=== PATIENT | male | born 1995 ===

== ENCOUNTER 2017-02-02 10:18 | Emergency (ER) | payer MEDICAID, OTHER ==
[2017-02-02 10:18] VITALS: BMI 21.6
[2017-02-02 10:24] VITALS: BP 123/73; PULSE 73; RESP 18; TEMP 98.4; O2SAT 99
--- NOTE | 2017-02-02 10:57 | C.PDOC ---
History Of Present Illness 21-year-old male, presents to the emergency department with complaints of a wart to his finger for the past several months. Patient states he has not tried anything over the counter. Denies trauma, discharge, pain or fever. Time Seen by Provider: 02/02/17 10:31 Chief Complaint (Nursing): Abnormal Skin Integrity History Per: Patient History/Exam Limitations: no limitations Onset/Duration Of Symptoms: Days Current Symptoms Are (Timing): Still Present Past Medical History Reviewed: Historical Data, Nursing Documentation, Vital Signs Vital Signs: Last Vital Signs Temp 98.4 F 02/02/17 10:21 Pulse 73 02/02/17 10:21 Resp 18 02/02/17 10:21 BP 123/73 02/02/17 10:21 Pulse Ox 99 02/02/17 12:24 - Medical History PMH: Asthma Family History: States: No Known Family Hx - Social History Hx Tobacco Use: No Hx Alcohol Use: No Hx Substance Use: No - Immunization History Hx Tetanus Toxoid Vaccination: No Hx Influenza Vaccination: No Hx Pneumococcal Vaccination: No Review Of Systems Constitutional: Negative for: Fever Respiratory: Negative for: Shortness of Breath Gastrointestinal: Negative for: Vomiting Musculoskeletal: Negative for: Hand Pain Neurological: Negative for: Weakness, Numbness Physical Exam - Physical Exam Appears: Non-toxic, No Acute Distress Skin: Warm, Dry, No Rash Head: Atraumatic, Normacephalic Eye(s): bilateral: Normal Inspection, EOMI Nose: Normal Oral Mucosa: Moist Neck: Normal ROM Chest: Symmetrical Respiratory: No Accessory Muscle Use Extremity: Normal ROM, No Tenderness, Capillary Refill (<2 seconds), No Deformity, No Swelling, Other ((+) <0.5cm skin colored dome shaped area to the right second and third mid-phalanx of palmar aspect. central capillaries noted) Pulses: Left Radial: Normal, Right Radial: Normal Neurological/Psych: Oriented x3, Normal Speech ED Course And Treatment O2 Sat by Pulse Oximetry: 99 Progress Note: Patient notes he came to ED today because he was going to go on vacation and "didnt want to deal with them" . No new symptoms. Ptwas instructed to use over the counter treatment for warts and involve retail sales consultant for evaluation. Asked to return for any new or worsening symptoms. Patient is agreeable with plan. All questions answered. Disposition - Disposition Disposition: HOME/ ROUTINE Disposition Time: 10:55 Condition: STABLE Additional Instructions: Use over the counter wart removal as instructed. Follow up with retail sales consultant in 1-2 days. Instructions: Common Wart (ED) - Clinical Impression Clinical Impression: Common wart - Scribe Statement The provider has reviewed the documentation as recorded by the Scribe (Monica Maravilla) All medical record entries made by the Scribe were at my direction and personally dictated by me. I have reviewed the chart and agree that the record accurately reflects my personal performance of the history, physical exam, medical decision making, and the department course for this patient. I have also personally directed, reviewed, and agree with the discharge instructions and disposition.
== END 2017-02-02 11:10 | disposition home or self-care (01) ==
LOC: C.ER 10:18
DX: B07.8 Other viral warts (principal)

== ENCOUNTER 2017-09-08 02:25 | Emergency (ER) | payer OTHER ==
[2017-09-08 02:26] VITALS: BMI 21.6
[2017-09-08 02:36] VITALS: O2SAT 99
[2017-09-08] MEDS ORDERED: Sodium Chloride 0.9% 1,000 ML IV ONE (02:42)
[2017-09-08 03:09] LABS: BASO % 0.3 % (0.0-2.0); EOS # 0.2 K/uL (0.0-0.7); EOS % 3.5 % (0.0-4.0); HEMOGLOBIN 14.7 g/dL (12.0-18.0); LYMPH # 3.3 K/uL (1.0-4.3); LYMPH % 49.7 % (20.0-40.0); MEAN CELL VOLUME 83.8 fL (80.0-94.0); MEAN CORPUSCULAR HGB CONC 33.5 g/dL (33.0-37.0); MEAN PLATELET VOLUME 7.9 fL (7.2-11.7); MONO # 0.6 K/uL (0.0-0.8); NEUT # 2.5 K/uL (1.8-7.0); NEUT % 37.5 % (50.0-75.0); NRBC % 0.1 % (0.0-2.0); RBC 5.24 Mil/uL (4.40-5.90); RED CELL DISTRIBUTION WIDTH 12.9 % (11.5-14.5); WHITE BLOOD COUNT 6.7 K/uL (4.8-10.8)
[2017-09-08 03:28] LABS: ALB/GLOB RATIO 1.3 (1.0-2.1); ALBUMIN 4.5 g/dL (3.5-5.0); CALCIUM 9.4 mg/dl (8.6-10.4); GFR AFRICAN-AMERICAN > 60; GFR NON-AFRICAN AMERICAN > 60; LIPASE 86 U/L (23-300)
[2017-09-08 03:29] LABS: ALT/SGPT 26 U/L (21-72); AST/SGOT 39 U/L (17-59); BLOOD UREA NITROGEN 15 mg/dL (9-20)
[2017-09-08 04:10] LABS: INR 1.2; PROTHROMBIN TIME 12.9 SECONDS (9.7-12.2)
[2017-09-08] MEDS ORDERED: Iodixanol 320 MG/ML 100 ML BOTTLE IV ONE (04:27)
--- NOTE | 2017-09-08 05:12 | CT ---
EXAM: CT Angiography Chest With Intravenous Contrast CLINICAL HISTORY: 22 years old, male; Pain; Chest pain; Additional info: Chest pain. R/O pe. TECHNIQUE: Axial computed tomographic angiography images of the chest with intravenous contrast using pulmonary embolism protocol. All CT scans at this facility use one or more dose reduction techniques, viz.: automated exposure control; ma/kV adjustment per patient size (including targeted exams where dose is matched to indication; i.e. head); or iterative reconstruction technique. 835 images are submitted. MIP reconstructed images were created and reviewed. Coronal and sagittal reformatted images were created and reviewed. CONTRAST: 100 mL of [id number] administered intravenously. COMPARISON: No relevant prior studies available. FINDINGS: Pulmonary arteries: No CT evidence for pulmonary embolus. Mild heterogeneous enhancement of the pulmonary arteries. Aorta: No acute findings. No thoracic aortic aneurysm. Lungs: Minimal mucus versus secretion versus aspirate in the right mainstem bronchus seen on image 45 series 4. No mass. Pleural space: Unremarkable. No significant effusion. No pneumothorax. Heart: Unremarkable. No cardiomegaly. No significant pericardial effusion. Mediastinum: Thymus gland is seen. Bones/joints: No acute fracture. No dislocation. Soft tissues: Unremarkable. Lymph nodes: Right hilar and small left hilar lymph nodes. Normal adrenal glands. IMPRESSION: 1. No CT evidence for pulmonary embolus. Mild heterogeneous enhancement of the pulmonary arteries. 2. Minimal mucus versus secretion versus aspirate in the right mainstem bronchus seen on image 45 series 4. 3. No active disease.
--- NOTE | 2017-09-08 05:23 | C.PDOC ---
Time Seen by Provider: 09/08/17 02:39 Chief Complaint (Nursing): Chest Pain History Per: Patient Onset/Duration Of Symptoms: Hrs Current Symptoms Are (Timing): Still Present Severity: Moderate Quality: "Pain" Modifying Factors: Other Indicated Below Alleviating Factors: None Additional History Per: Prior Records Past Medical History Reviewed: Historical Data, Nursing Documentation, Vital Signs Vital Signs: Last Vital Signs Temp 98.2 F 09/08/17 02:27 Pulse 81 09/08/17 02:27 Resp 20 09/08/17 02:27 BP 68/38 L 09/08/17 02:27 Pulse Ox 99 09/08/17 02:27 - Medical History PMH: Asthma Family History: States: Unknown Family Hx - Social History Hx Tobacco Use: No Hx Alcohol Use: No Hx Substance Use: Yes - Immunization History Hx Tetanus Toxoid Vaccination: No Hx Influenza Vaccination: No Hx Pneumococcal Vaccination: No Review Of Systems Except As Marked, All Systems Reviewed And Found Negative. Constitutional: Negative for: Fever, Weakness Cardiovascular: Positive for: Chest Pain Respiratory: Positive for: Cough (for about 1 month), Sputum. Negative for: Shortness of Breath, Hemoptysis Gastrointestinal: Negative for: Vomiting, Abdominal Pain Musculoskeletal: Negative for: Neck Pain, Back Pain, Leg Pain Skin: Negative for: Rash Neurological: Negative for: Weakness, Numbness, Dizziness Physical Exam - Physical Exam Appears: Non-toxic, No Acute Distress Skin: Normal Color, Warm, Dry, No Rash Head: Atraumatic, Normacephalic Eye(s): bilateral: Normal Inspection, PERRL, EOMI Neck: Normal ROM, Supple Chest: Symmetrical, No Deformity, No Tenderness, No Ecchymosis, No Subcutaneous Emphysema Cardiovascular: Rhythm Regular Respiratory: Normal Breath Sounds, No Accessory Muscle Use Gastrointestinal/Abdominal: Soft, No Tenderness Back: No CVA Tenderness Extremity: Normal ROM, No Pedal Edema, No Calf Tenderness Neurological/Psych: Oriented x3, Normal Motor, Normal Sensation ED Course And Treatment - Laboratory Results Result Diagrams: 09/08/17 03:05 09/08/17 03:05 Lab Interpretation: No Acute Changes ECG: Interpreted By Me, Viewed By Me ECG Rhythm: Sinus Rhythm, Nonspecific Changes ECG Interpretation: No Acute Changes Rate From EC O2 Sat by Pulse Oximetry: 99 Pulse Ox Interpretation: Normal - Radiology CXR: Interpreted by Me, Viewed By Me CXR Interpretation: Yes: No Acute Disease - CT Scan/US CTA of chest Other Rad Studies (CT/US): Read By Radiologist, Radiology Report Reviewed CT/US Interpretation: IMPRESSION: 1. No CT evidence for pulmonary embolus. Mild heterogeneous enhancement of. the pulmonary arteries. 2. Minimal mucus versus secretion versus aspirate in the right mainstem. bronchus seen on image 45 series 4. 3. No active disease. Progress Note: Pt feels much better and wants to go home. Reassessment Condition: Improved Progress - Interventions Interventions:: Observation, Intravenous fluid - Data Reviewed Data Reviewed: Lab, Diagnostic imaging, EKG, Old records - Patient Status Patient status: Mostly improved - Continuity of Care Discussed patient case with:: Patient, ED Nurse - Patient Plan Patient Plan: Discharge, F/U with PCP, Continue present meds Disposition Counseled Patient/Family Regarding: Studies Performed, Diagnosis, Need For Followup, Rx Given - Disposition Disposition: HOME/ ROUTINE Disposition Time: 05:24 Condition: IMPROVED Additional Instructions: Follow up with your doctor within 1-2 days. Return to the ER if you pass out, develop shortness of breath, dizziness, worsening of symptoms or if you have any other concerns. Prescriptions: Azithromycin [Zithromax] 1 dose PO DAILY #1 pkt Instructions: Chest Pain (DC) - Clinical Impression Clinical Impression: Chest pain, Bronchitis
[2017-09-08 05:35] VITALS: RESP 18
[2017-09-08 05:36] VITALS: BP 119/72; PULSE 76; TEMP 97.7
[2017-09-08 05:56] LABS: SQUAMOUS EPITHIAL < 1 /hpf (0-5); URINE BILIRUBIN NEGATIVE (NEGATIVE); URINE BLOOD NEGATIVE (NEGATIVE); URINE CLARITY Clear (Clear); URINE COLOR Straw (YELLOW); URINE GLUCOSE (UA) NORMAL (Normal); URINE LEUKOCYTE ESTERASE NEG Leu/uL (Negative); URINE NITRATE NEGATIVE (NEGATIVE); URINE PROTEIN NEGATIVE (NEGATIVE); URINE UROBILINOGEN NORMAL mg/dL (0.2-1.0)
[2017-09-08 06:10] LABS: BARBITURATES, UR NEGATIVE (NEGATIVE); BENZODIAZEPINES, UR NEGATIVE (NEGATIVE); OPIATES, UR NEGATIVE (NEGATIVE); PHENCYCLIDINE, UR NEGATIVE (NEGATIVE)
--- NOTE | 2017-09-08 08:59 | RAD ---
PROCEDURE: CHEST RADIOGRAPH, 1 VIEW HISTORY: Chest pain COMPARISON: 07/17/2016 FINDINGS: LUNGS: Clear. PLEURA: No pneumothorax or pleural fluid seen. CARDIOVASCULAR: Normal. OSSEOUS STRUCTURES: No significant abnormalities. VISUALIZED UPPER ABDOMEN: Normal. OTHER FINDINGS: None. IMPRESSION: No active disease.
--- NOTE | 2017-09-09 12:24 | CARD ---
APPROVED REPORT EKG Measurement Heart [id number] <Conclusion> Normal sinus rhythm Minimal voltage criteria for LVH, may be normal variant Borderline ECG
== END 2017-09-08 05:37 | disposition home or self-care (01) ==
LOC: C.ER 02:25
DX: J40 Bronchitis, not specified as acute or chronic (principal); R07.9 Chest pain, unspecified
CPT/HCPCS: 71045; 71275; 80053; 80324; 80345; 80346; 80349; 80353; 80358; 80361; 81001; 83690; 83992; 84484; 85025; 85378; 85610; 85730; 93005; 96360; 99285; J7040; Q9967

== ENCOUNTER 2018-01-03 10:24 | Emergency (ER) | payer OTHER ==
[2018-01-03 10:28] VITALS: BMI 21.4
[2018-01-03 10:30] VITALS: BP 116/74; PULSE 102; RESP 18; TEMP 99.2; O2SAT 99
--- NOTE | 2018-01-03 10:43 | C.PDOC ---
History Of Present Illness Patient is a 22 y/o male presenting to the ER complaining of sore throat. Patient states he woke up with sore throat and general myalgias this morning. He denies any fever, nausea, or vomiting. He denies any sick contacts at home. Time Seen by Provider: 01/03/18 10:32 Chief Complaint (Nursing): ENT Problem History Per: Patient History/Exam Limitations: no limitations Onset/Duration Of Symptoms: Hrs Current Symptoms Are (Timing): Still Present Location Of Pain: Throat, Diffuse Myalgias Sick Contacts (Context): None Associated Symptoms: Sore Throat. denies: Fever, Nausea, Vomiting Past Medical History Reviewed: Historical Data, Nursing Documentation, Vital Signs Vital Signs: Last Vital Signs Temp 99.2 F 01/03/18 10:28 Pulse 102 H 01/03/18 10:28 Resp 18 01/03/18 11:15 BP 116/74 01/03/18 10:28 Pulse Ox 99 01/03/18 10:46 - Medical History PMH: Asthma Surgical History: No Surg Hx Family History: States: No Known Family Hx - Social History Hx Tobacco Use: No Hx Alcohol Use: No Hx Substance Use: Yes - Immunization History Hx Tetanus Toxoid Vaccination: No Hx Influenza Vaccination: No Hx Pneumococcal Vaccination: No Review Of Systems Except As Marked, All Systems Reviewed And Found Negative. Constitutional: Negative for: Fever ENT: Positive for: Throat Pain Gastrointestinal: Negative for: Nausea, Vomiting Physical Exam - Physical Exam Appears: Non-toxic, No Acute Distress Skin: Normal Color, Warm, Dry Head: Atraumatic, Normacephalic Eye(s): bilateral: Normal Inspection Oral Mucosa: Moist Tongue: Normal Appearing Lips: Normal Appearing Throat: Erythema (Mild erythema ), No Exudate Neck: Supple Chest: Symmetrical Cardiovascular: Rhythm Regular Respiratory: Normal Breath Sounds, No Rales, No Rhonchi, No Wheezing Gastrointestinal/Abdominal: Soft, No Tenderness, No Distention, No Guarding Neurological/Psych: Oriented x3 Gait: Steady ED Course And Treatment O2 Sat by Pulse Oximetry: 99 (RA) Pulse Ox Interpretation: Normal Medical Decision Making Medical Decision Making: Patient given 800mg motrin PO. Advised supportive care at home. Disposition - Disposition Disposition: HOME/ ROUTINE Disposition Time: 11:15 Condition: GOOD Additional Instructions: MICHAEL BUTCHER, thank you for letting us take care of you today. Your provider was Nimisha Reyes MD and you were treated for SORE THROAT. The emergency medical care you received today was directed at your acute symptoms. If you were prescribed any medication, please fill it and take as directed. It may take several days for your symptoms to resolve. Return to the Emergency Department if your symptoms worsen, do not improve, or if you have any other problems. Please contact your doctor or call one of the physicians/clinics you have been referred to that are listed on the Patient Visit Information form that is included in your discharge packet. Bring any paperwork you were given at discharge with you along with any medications you are taking to your follow up visit. Our treatment cannot replace ongoing medical care by a primary care provider outside of the emergency department. Thank you for allowing the [facility] team to be part of your care today. If you had an X-Ray or CT scan: A Radiologist will review the ED reading if any change in treatment is needed we will contact you. If you had a blood, urine, or wound culture: It will take several days for the results, if any change in treatment is needed we will contact you. If you had an STI test: It will take 48 hours for the results. Please call after 1 week if you have not heard back. Instructions: Sore Throat, Adult (DC) Forms: [employer] (Maldivian) - Clinical Impression Clinical Impression: Viral syndrome - Scribe Statement The provider has reviewed the documentation as recorded by the Scribe Suma Olivares
== END 2018-01-03 11:16 | disposition home or self-care (01) ==
LOC: C.ER 10:24
DX: B34.9 Viral infection, unspecified (principal)

== ENCOUNTER 2018-01-04 09:41 | Emergency (ER) | payer OTHER ==
[2018-01-04 09:41] VITALS: BMI 21.4
[2018-01-04 09:48] VITALS: BP 111/74; PULSE 102; RESP 20; TEMP 99.1; O2SAT 99
--- NOTE | 2018-01-04 10:02 | C.PDOC ---
History Of Present Illness 22 year old male presents to the emergency department with complaints of persistent sore throat for the last two days. Patient reports that he was seen yesterday 01/03 for the same symptoms, but returns stating "they only gave me one pill and the pain came back this morning." Patient states that he did not read the discharge instructions that were given to him at the time. He denies fever, or any new symptoms since his prior evaluation. Patient is requesting a work note. CO PERSIST SORE THROAT X 2 DAYS. SEEN 01/03 FOR SAME, "THEY ONLY GAVE ME ONE PILL AND PAIN CAME BACK THIS MORNING". PS DID NOT READ DC INSTRUCTIONS. NO FEVER , NEW SX SINCE PRIOR EVAL. REQUESTING WORK NOTE EXAM NONTOXIC HEENT +PHARNGITIS W MILD SWELL SCANT EXUDATE, UVULA MIDLINE NO STRIDOR, DROOL. REMAINDER NEG MDM PT ADVISED PAIN MEDS ARE OTC, TO READ DC INSTRUCTIONS. FU PMD Time Seen by Provider: 01/04/18 09:55 Chief Complaint (Nursing): ENT Problem History Per: Patient History/Exam Limitations: no limitations Onset/Duration Of Symptoms: Days (2) Current Symptoms Are (Timing): Still Present Location Of Pain: Throat Associated Symptoms: Sore Throat. denies: Fever Past Medical History Reviewed: Historical Data, Nursing Documentation, Vital Signs Vital Signs: Last Vital Signs Temp 99.1 F 01/04/18 09:43 Pulse 102 H 01/04/18 09:43 Resp 20 01/04/18 09:43 BP 111/74 01/04/18 09:43 Pulse Ox 99 01/04/18 10:02 - Medical History PMH: Asthma Surgical History: No Surg Hx Family History: States: Unknown Family Hx - Social History Hx Tobacco Use: No Hx Alcohol Use: No Hx Substance Use: Yes - Immunization History Hx Tetanus Toxoid Vaccination: No Hx Influenza Vaccination: No Hx Pneumococcal Vaccination: No Review Of Systems Except As Marked, All Systems Reviewed And Found Negative. Constitutional: Negative for: Fever ENT: Positive for: Throat Pain Physical Exam - Physical Exam Appears: Non-toxic, No Acute Distress Skin: Warm, Dry Head: Atraumatic, Normacephalic Eye(s): bilateral: Normal Inspection Nose: Normal Oral Mucosa: Moist Throat: Exudate (scant), No Drooling, Other (pharyngitis, mild swelling, uvula midline) Chest: Symmetrical Cardiovascular: Rhythm Regular Respiratory: Normal Breath Sounds, No Rales, No Rhonchi, No Stridor, No Wheezing Extremity: Normal ROM Neurological/Psych: Oriented x3, Normal Speech, Normal Cognition ED Course And Treatment O2 Sat by Pulse Oximetry: 99 (RA) Pulse Ox Interpretation: Normal Progress Note: Plan: Decadron 12mg PO. Motrin 800mg PO. Tylenol 975mg PO Medical Decision Making Medical Decision Making: Patient advised that his pain medications are obtainable [id number], and that he should read his discharge instructions for more information and follow up with his PMD. Disposition Counseled Patient/Family Regarding: Diagnosis, Need For Followup - Disposition Referrals: [facility] [Outside] [facility] [Outside] YOUR,PMD [Other] Disposition: HOME/ ROUTINE Disposition Time: 09:58 Condition: IMPROVED Additional Instructions: TAKE MOTRIN 3-4 PILLS EVERY 6-8 HOURS OR DIRECTED. TAKE TYLENOL DIRECTED. MEDICATIONS ARE AVAILABLE OVER THE COUNTER AND DO NOT REQUIRE A PRESCRIPTION. FOLLOW UP WITH YOUR PMD. Instructions: Sore Throat, Adult (DC) Forms: [employer] (Martiniquais), Work Excuse - Clinical Impression Clinical Impression: Noncompliance with medication regimen, Sore throat - Scribe Statement The provider has reviewed the documentation as recorded by the Scribe (Narendra Acevedo) Provider Attestation: All medical record entries made by the Scribe were at my direction and personally dictated by me. I have reviewed the chart and agree that the record accurately reflects my personal performance of the history, physical exam, medical decision making, and the department course for this patient. I have also personally directed, reviewed, and agree with the discharge instructions and disposition.
== END 2018-01-04 10:10 | disposition home or self-care (01) ==
LOC: C.ER 09:41
DX: J02.9 Acute pharyngitis, unspecified (principal); Z91.14 Patient's other noncompliance with medication regimen
CPT/HCPCS: 99283; J8540

== ENCOUNTER 2018-03-20 10:56 | Emergency (ER) | payer OTHER ==
[2018-03-20 10:56] VITALS: BMI 21.4
[2018-03-20 11:02] VITALS: TEMP 97.7; O2SAT 98
[2018-03-20] MEDS ORDERED: Naproxen 550 mg Tab PO STA (11:19)
--- NOTE | 2018-03-20 11:22 | C.PDOC ---
History Of Present Illness 22 year old male presents to the ER with a complaint of chronic neck pain that has worsened today. 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 Patient states the pain worsens when turning his head left and right. Denies weakness or numbness of the extremities. Chief Complaint (Nursing): Back Pain History Per: Patient History/Exam Limitations: no limitations Onset/Duration Of Symptoms: Days Current Symptoms Are (Timing): Still Present Quality Of Discomfort: Unable To Describe Previous Symptoms: Chronic Pain Associated Symptoms: None Exacerbating Factor(s): Nothing Recent travel outside of the [place]: No Past Medical History Reviewed: Historical Data, Nursing Documentation, Vital Signs Vital Signs: Last Vital Signs Temp 97.7 F 03/20/18 11:00 Pulse 67 03/20/18 12:20 Resp 18 03/20/18 12:20 BP 115/76 03/20/18 12:20 Pulse Ox 98 03/20/18 13:28 - Medical History PMH: Asthma Family History: States: Unknown Family Hx - Social History Hx Tobacco Use: No Hx Alcohol Use: No Hx Substance Use: Yes - Immunization History Hx Tetanus Toxoid Vaccination: Yes Hx Influenza Vaccination: Yes Hx Pneumococcal Vaccination: No Review Of Systems Constitutional: Negative for: Fever Eyes: Negative for: Pain ENT: Negative for: Ear Pain, Ear Discharge Cardiovascular: Negative for: Chest Pain Respiratory: Negative for: Cough, Shortness of Breath Gastrointestinal: Negative for: Nausea, Vomiting Musculoskeletal: Positive for: Neck Pain. Negative for: Shoulder Pain, Arm Pain Neurological: Negative for: Weakness, Numbness Physical Exam - Physical Exam Appears: Non-toxic, No Acute Distress Skin: Normal Color, Warm, Dry, No Rash Head: Atraumatic, Normacephalic Eye(s): bilateral: Normal Inspection Oral Mucosa: Moist Neck: No Midline Cervical Tenderness, Paracervical Tenderness (Right), Supple Chest: Symmetrical, No Tenderness Cardiovascular: Rhythm Regular Respiratory: Normal Breath Sounds, No Rales, No Rhonchi, No Wheezing Gastrointestinal/Abdominal: Soft, No Tenderness Back: No Vertebral Tenderness, No Paraspinal Tenderness Extremity: Normal ROM (x4) Neurological/Psych: Oriented x3, Normal Speech, Normal Motor, Normal Sensation Gait: Steady ED Course And Treatment O2 Sat by Pulse Oximetry: 98 (Room air) Pulse Ox Interpretation: Normal - Other Rad Cervical spine x-ray X-Ray: Viewed By Me, Read By Radiologist Interpretation: IMPRESSION: Normal limited examination Medical Decision Making Medical Decision Making: Naproxen administered with relief. Cervical spine x-ray ordered, results were negative. Patient is resting in the ER in no acute distress, vitals are stable, will discharge home with Rx and instructions to follow up at the clinic. Disposition - Disposition Referrals: [facility] [Outside] Disposition: HOME/ ROUTINE Disposition Time: 11:48 Condition: FAIR Additional Instructions: Follow up with the medical clinic within 1-2 days. Return if worsened. Prescriptions: diaZEpam [Valium] 5 mg PO TID #21 tab Naproxen [Naprosyn] 500 mg PO BID #20 tab Instructions: Cervical Muscle Strain (DC) Forms: [email or web address] (Malay), Work Excuse - Clinical Impression Clinical Impression: Cervical strain - PA / MASK INSPECTOR / Resident Statement MD/DO has reviewed & agrees with the documentation as recorded. - Scribe Statement The provider has reviewed the documentation as recorded by the Scribe Anand Mendoza All medical record entries made by the Wilmaibmax were at my direction and personally dictated by me. I have reviewed the chart and agree that the record accurately reflects my personal performance of the history, physical exam, medical decision making, and the department course for this patient. I have also personally directed, reviewed, and agree with the discharge instructions and disposition.
[2018-03-20] MEDS ORDERED: Naproxen 550 mg Tab PO ONE (11:32)
--- NOTE | 2018-03-20 11:39 | RAD ---
Date of service: 03/20/2018 PROCEDURE: Cervical Spine Radiographs. HISTORY: Pain. COMPARISON: None. FINDINGS: BONES: The vertebral bodies are maintained in height. Normal alignment is maintained. The atlantoaxial articulation is suboptimally evaluated. The odontoid process is grossly intact but suboptimally evaluated due to technical limitation of the open mouth view. DISC SPACES: Normal. SOFT TISSUES: Normal. No prevertebral soft tissue swelling. OTHER FINDINGS: None. IMPRESSION: Normal limited examination
[2018-03-20 12:36] VITALS: BP 115/76; PULSE 67; RESP 18
== END 2018-03-20 12:21 | disposition home or self-care (01) ==
LOC: C.ER 10:56
DX: S16.1XXA Strain of muscle, fascia and tendon at neck level, initial encounter (principal); X58.XXXA Exposure to other specified factors, initial encounter

== ENCOUNTER 2018-04-04 11:35 | Emergency (ER) | payer OTHER ==
[2018-04-04 11:35] VITALS: BMI 21.4
[2018-04-04 11:46] VITALS: BP 120/79; PULSE 60; RESP 18; TEMP 98.2; O2SAT 100
--- NOTE | 2018-04-04 13:24 | C.PDOC ---
History Of Present Illness 22 year old male presents to the ED complaining of intermittent pain to the right side of neck for the past 2 months that worsens with movement. Patient reports he was here before and was given medication that helped alleviate the pain, but woke up with the same pain. Patient also reports getting an x-ray during his last visit that was reported negative. 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 Contrary to triage, patient denies any new symptoms, dizziness, numbness, weakness, or tingling in extremities. Time Seen by Provider: 04/04/18 12:26 Chief Complaint (Nursing): Pain, Chronic History Per: Patient History/Exam Limitations: no limitations Onset/Duration Of Symptoms: Days Current Symptoms Are (Timing): Still Present Reports Recently: Seen In ED Past Medical History Reviewed: Historical Data, Nursing Documentation, Vital Signs Vital Signs: Last Vital Signs Temp 98.2 F 04/04/18 11:43 Pulse 60 04/04/18 11:43 Resp 18 04/04/18 11:43 BP 120/79 04/04/18 11:43 Pulse Ox 100 04/04/18 15:47 - Medical History PMH: Asthma Surgical History: No Surg Hx Family History: States: No Known Family Hx - Social History Hx Tobacco Use: No Hx Alcohol Use: No Hx Substance Use: Yes (marijauna) - Immunization History Hx Tetanus Toxoid Vaccination: Yes Hx Influenza Vaccination: No Hx Pneumococcal Vaccination: No Review Of Systems Except As Marked, All Systems Reviewed And Found Negative. Musculoskeletal: Positive for: Neck Pain (Intermittent right sided neck pain for past 2 months jayjay worsens with movement. ) Neurological: Negative for: Weakness, Numbness, Dizziness, Other (tingling to extremities) Physical Exam - Physical Exam Appears: Non-toxic, No Acute Distress Skin: Warm, Dry Head: Atraumatic, Normacephalic Eye(s): bilateral: Normal Inspection, PERRL, EOMI Ear(s): Bilateral: Normal Neck: No Midline Cervical Tenderness, Other (Tenderness to right lateral neck muscle. Pain with movement of head to ipsilateral side. ) Lymphatic: No Adenopathy Chest: Symmetrical, No Tenderness Cardiovascular: Rhythm Regular Respiratory: Normal Breath Sounds Gastrointestinal/Abdominal: Soft, No Tenderness Back: No Vertebral Tenderness, No Paraspinal Tenderness Extremity: Normal ROM, No Swelling Neurological/Psych: Oriented x3, Normal Speech, Normal Cognition, Normal Motor, Normal Sensation Gait: Steady ED Course And Treatment O2 Sat by Pulse Oximetry: 100 (RA) Pulse Ox Interpretation: Normal Progress Note: Lidoderm, motrin, valium ordered. On re-evaluation patient feels better, no neuro deficit, ambulating in ED. Patient is stable to be d/c home with PMD/clinic follow up. Disposition - Disposition Referrals: [facility] [Outside] Disposition: HOME/ ROUTINE Disposition Time: 13:29 Condition: STABLE Additional Instructions: Follow up in Clinic within 1-2 days. Return to ED if feel worse. Prescriptions: Lidocaine 4% [Lidocaine 4% 50 ml Topical (or)] 1 appl TOP QID #1 bottle Naproxen [Naprosyn] 1 tab PO BID PRN #25 tab PRN Reason: Pain diaZEpam [Valium] 2 mg PO TID #15 tab Instructions: Torticollis, Adult Forms: [facility] ([place] Islander), Work Excuse - Clinical Impression Clinical Impression: Neck muscle spasm - PA / IP NETWORK ARCHITECT / Resident Statement MD/DO has reviewed & agrees with the documentation as recorded. - Scribe Statement The provider has reviewed the documentation as recorded by the Scribe Farhad Ruby All medical record entries made by the Scribe were at my direction and personally dictated by me. I have reviewed the chart and agree that the record accurately reflects my personal performance of the history, physical exam, medical decision making, and the department course for this patient. I have also personally directed, reviewed, and agree with the discharge instructions and disposition.
[2018-04-04] MEDS ORDERED: Lidocaine 5% Patch TD STA (13:28)
[2018-04-04] MEDS ORDERED: Lidocaine 5% Patch TD ONE (13:37)
== END 2018-04-04 13:40 | disposition home or self-care (01) ==
LOC: C.ER 11:35
DX: M62.838 Other muscle spasm (principal)

== ENCOUNTER 2018-04-30 13:33 | Emergency (ER) | payer OTHER ==
[2018-04-30 13:33] VITALS: BMI 21.4
[2018-04-30 14:02] VITALS: BP 109/63; PULSE 64; RESP 16; TEMP 97.9; O2SAT 100
--- NOTE | 2018-04-30 15:12 | RAD ---
Date of service: 04/30/2018 PROCEDURE: Left middle finger radiographs. HISTORY: r/o fracture COMPARISON: None. TECHNIQUE: AP radiograph of the left hand, as well as spot oblique and lateral images of left middle finger were obtained. FINDINGS: LEFT MIDDLE FINGER: Left middle finger normal, without acute fracture of focal lesion. Remainder of the left hand (as seen on the AP view) is grossly unremarkable. JOINTS: Normal. SOFT TISSUES: Normal. OTHER FINDINGS: None. IMPRESSION: No acute fracture or dislocation.
--- NOTE | 2018-04-30 15:14 | RAD ---
Date of service: 04/30/2018 PROCEDURE: Left Wrist Radiographs. HISTORY: r/o fracture COMPARISON: None. FINDINGS: BONES: Bone alignment and mineralization are normal. There is no acute displaced fracture or bone destruction. JOINTS: Normal. No dislocation. SOFT TISSUES: Normal. OTHER FINDINGS: None. IMPRESSION: No acute fracture or dislocation.
--- NOTE | 2018-04-30 15:55 | C.PDOC ---
History Of Present Illness 22 y/o right handed male with PMH of asthma presents to ED for left hand pain s/p punching a wall this morning. After punching the wall, pt had immediate pain and swelling to left 3rd digit and left wrist. Unable to make a full fist with left hand. Has not taken anything for pain. Denies numbness, paresthesias, snuffbox tenderness, elbow pain, shoulder pain, back pain. Chief Complaint (Nursing): Upper Extremity Problem/Injury Past Medical History Reviewed: Historical Data, Nursing Documentation, Vital Signs Vital Signs: Last Vital Signs Temp 97.9 F 04/30/18 13:58 Pulse 64 04/30/18 13:58 Resp 16 04/30/18 13:58 BP 109/63 04/30/18 13:58 Pulse Ox 100 04/30/18 13:58 - Medical History PMH: Asthma Family History: States: Unknown Family Hx - Social History Hx Tobacco Use: No Hx Alcohol Use: No Hx Substance Use: Yes (marijauna) - Immunization History Hx Tetanus Toxoid Vaccination: Yes Hx Influenza Vaccination: No Hx Pneumococcal Vaccination: No Review Of Systems Except As Marked, All Systems Reviewed And Found Negative. Constitutional: Negative for: Fever, Chills Eyes: Negative for: Pain Cardiovascular: Negative for: Chest Pain, Palpitations Respiratory: Negative for: Cough, Shortness of Breath Gastrointestinal: Negative for: Nausea, Vomiting, Abdominal Pain Musculoskeletal: Positive for: Arm Pain (left wrist), Hand Pain (left). Negative for: Neck Pain, Shoulder Pain, Back Pain, Leg Pain, Foot Pain Skin: Positive for: Bruising (left 3rd digit). Negative for: Rash Neurological: Negative for: Weakness, Numbness, Headache, Dizziness Physical Exam - Physical Exam Appears: Well, No Acute Distress Skin: Warm, Dry, Ecchymosis (left 3rd digit over MCP) Head: Atraumatic, Normacephalic, No Tenderness Eye(s): bilateral: Normal Inspection, PERRL, EOMI Neck: Normal, Normal ROM, No Midline Cervical Tenderness, No Paracervical Tenderness Chest: Symmetrical Cardiovascular: Rhythm Regular Respiratory: Normal Breath Sounds Back: Normal Inspection, No Vertebral Tenderness, No Muscle Spasm, No Paraspinal Tenderness Extremity: No Normal ROM (decreased ROM of left 3rd finger secondary to pain; full ROM left wrist), Tenderness (left 3rd digit, volar wrist), Capillary Refill (<2 sec), No Deformity, Swelling (left 3rd digit) Extremity: Left: Bony Point Tenderness, Limited ROM To Joint (left 3rd finger), Right: Atraumatic (left 3rd digit bruised, swollen, decreased ROM), Normal Color And Temperature, Normal ROM Neurological/Psych: Oriented x3, Normal Speech, Normal Cognition, Normal Cranial Nerves, No Cerebellar Signs, Normal Motor, Normal Sensation ED Course And Treatment O2 Sat by Pulse Oximetry: 100 Medical Decision Making Medical Decision Making: Initial plan: --pain control --xray left hand Xrays negative Impression: Left 3rd digit contusion Plan: ibuprofen for pain NATALIE wrap Ice, elevate, compress injured area no strenuous activity Disposition - Disposition Disposition: HOME/ ROUTINE Disposition Time: 15:00 Condition: IMPROVED Additional Instructions: Take ibuprofen 600mg every 6 hours as needed for pain Keep area elevated, compressed, and rested Ice the injury Followup with hand if pain persists Return to ED if symptoms worsen Prescriptions: Ibuprofen [Motrin Tab] 600 mg PO Q6H PRN #20 tab PRN Reason: Pain, Mild (1-3) Forms: [facility] (Armenian), Work Excuse - Clinical Impression Clinical Impression: Finger injury
== END 2018-04-30 15:34 | disposition home or self-care (01) ==
LOC: C.ER 13:33
DX: S60.032A Contusion of left middle finger without damage to nail, initial encounter (principal); W22.01XA Walked into wall, initial encounter